=== PATIENT | female | born 1995 | race Caucasian/White ===

== ENCOUNTER 2020-03-11 19:25 | Outpatient (CLI) | payer OTHER, SELFPAY ==
[2020-03-11 20:00] VITALS: BP 136/76; PULSE 83
--- NOTE | 2020-03-11 20:00 | PC.NURSE ---
pt states pt has had intermittent episodes of blurry vision and seeing spots over the past couple weeks that typically resolve within 20 minutes. pt notices episodes upon walking out of pts work building and when pt watches tv. pt does use seeing glasses. pt states pt has not had dr visit since episodes began and dr is unaware.
[2020-03-11 20:02] VITALS: BP 125/76
[2020-03-11 20:15] VITALS: BP 120/67; PULSE 78; TEMP 36.7
[2020-03-11 20:18] LABS: Add Urine Microscopic? YES; Amorphous Sediment Urine Few; Appearance Urine Cloudy (Clear); Bilirubin Urine Negative (Negative); Blood Urine Negative (Negative); Color Urine Yellow (Yellow); Glucose Urine UA Negative (Negative); Ketones Urine Negative (Negative); Leukocyte Esterase Ur 1+ LEU/UL (NEGATIVE); Mucus Urine Rare /lpf; Nitrate Urine Negative (Negative); Protein Urine 1+ mg/dL (Negative); Specific Grav Ur 1.024 (1.001-1.035); Squamous Epithelial Cell Urine Many /hpf (Few); Urobilinogen Urine Negative mg/dL (<2.0); WBC Urine 0-3 /hpf (0-3)
[2020-03-11 20:21] LABS: Creatinine Urine 126.8 mg/dL; Total Protein Urine Random 12 mg/dL
== END 2020-03-11 19:26 | disposition home or self-care (01) ==
LOC: ANHOBOP 19:33
PROVIDERS: PCP Internal Medicine; Visit Provider Student in an Organized Health Care Education/Training Program
DX: O26.899 Other specified pregnancy related conditions, unspecified trimester (principal); R42 Dizziness and giddiness; Z3A.00 Weeks of gestation of pregnancy not specified
CPT/HCPCS: 59025; 81001; 82570; 84156; 87086; 87088

== ENCOUNTER 2020-03-20 22:55 | Inpatient (IN) | payer OTHER, SELFPAY ==
--- NOTE | 2020-03-06 14:04 | PC.NURSE ---
PATIENT STATES SHE HAS A HEART SHAPE UTERUS AND BABY IS BREECH--STATES IF BABY DOES NOT TURN SHE WILL HAVE A C/S INSTRUCTED PATIENT IF SHE IS A C/S SHE WILL NEED TO BE IN OB 2 HOURS BEFORE SURGERY TIME AND . NOTHING TO EATING OR DRINK AFTER MIDNIGHT THE NIGHT BEFORE SURGERY. PATIENT VERBALIZED HER UNDERSTANDING REQUISITION GIVEN TO PATIENT FOR PRE-OP LAB DRAW IF SHE IS SCHEDULED FOR C/S
[2020-03-20 23:23] VITALS: BP 133/77; PULSE 74
[2020-03-20 23:30] VITALS: BP 118/70; PULSE 77
[2020-03-20 23:45] VITALS: BP 110/69; PULSE 71
--- NOTE | 2020-03-20 23:49 | WPDANESEPP ---
Anes - Eval Pre Procedure Procedure: Labor epidural Date/Time: 03/20/20 23:49 Surgeon: Nabeel Preop Diagnosis: pain during labor Pre Op Diagnosis: IOL Patient Data Age: 24 Gender: F Height: Weight: Last Vital Signs Pulse 71 03/20/20 23:45 BP 110/69 03/20/20 23:45 Allergies Allergy/AdvReac Type Severity Reaction Status Date / Time No Known Allergies Allergy Verified 03/06/20 13:44 Home Medications Medication Instructions Recorded Confirmed Type PNV no.[id number] 1 tablet PO BID 03/06/20 03/11/20 History [ Gummies] Patient hx anesthesia problems: none Family hx anesthesia problems: none PMFSH Family History Family History (Updated 03/06/20 @ 13:48 by Chu Chaves RN) Grandparent Diabetes mellitus Chronic obstructive pulmonary disease Social History Social History Substance use: never Spiritual care concerns: No Exam Day of Procedure 03/20/20 23:49
[2020-03-21] VITALS (132 sets, daily range): BP systolic 99–132; BP diastolic 45–81; PULSE 56–148; RESP 18; TEMP 36.1–37.1; O2SAT 89–100; BMI 34.8
--- NOTE | 2020-03-21 00:33 | LDADM ---
This patient, Aundrea Love, was admitted to Labor/Delivery/Recovery 108 on 03/20/20 at 22:55. Plans for labor, pain management and were discussed with patient. Patient/family oriented to hospital policies and general routines including ID bracelet, bed and alarms, visiting hours, pain management, procedures, bathroom and other care routines, personal items, smoking policy, room service/diet and guest tray routines, security routines, and visiting hours. Patient/Family are encouraged to report perceived risks to care and to ask questions if they do not understand what they are told or what they should do. See OBIX for further documentation.
[2020-03-21] MEDS: miSOPROStol 25 MCG TABLET VAGINAL (01:01)
[2020-03-21] MEDS: LACTATED RINGERS 1,000 ML 125 ML IV CONT ×2 (01:15→08:02)
[2020-03-21] MEDS: AMPICILLIN 2 GM/NS 100 ML 2 GM/100 ML BAG IVPB (01:16)
[2020-03-21 01:38] LABS: Basophils Absolute Auto 0.1 K/mm3 (0.0-0.1); Basophils Percent Auto 0.5 % (0.2-1.2); Eosinophils Absolute Auto 0.1 K/mm3 (0-0.3); Eosinophils Percent Auto 0.6 % (0-4.4); Hematocrit 40.6 % (37.0-47.0); Immature Granulocyte Absolute 0.17 K/mm3 (0.00-0.031); Immature Granulocyte Percent A 1.5 % (0-0.5); Lymphocytes Absolute Auto 1.94 K/mm3 (0.9-3.2); Lymphocytes Percent Auto 17.7 % (18.3-44.2); Mean Corpuscular Hemoglobin 28.8 pg (26-34); Mean Corpuscular Volume 89.8 fl (80-100); Mean Platelet Volume 12.3 fl (7.4-10.4); Monocytes Absolute Auto 0.8 K/mm3 (0.1-0.6); Neutrophils Percent Auto 72.7 % (45.5-73.1); Platelet Count Result 216 k/mm3 (150-375); Red Blood Count 4.52 M/mm3 (4.2-5.4); Red Cell Distribution Width 14.5 % (11.5-14.5)
[2020-03-21] MEDS: AMPICILLIN 1 GM/NS 50 ML 1 GM/50 ML BAG IVPB ×2 (05:14→09:51)
[2020-03-21] MEDS: OXYTOCIN 30 UNITS/NS 500 ML 30 UNITS/500 ML BAG 6 UNITS IV CONT (05:44)
--- NOTE | 2020-03-21 07:19 | P.HPUP_ITS ---
History and Physical Update Update Date/Time: 03/21/20 07:19 24 yo G1 at 39w4d here for elective induction. Pt reports good FM. She denies vaginal bleeding or LOF. Her has been uncomplicated thus far. History and Physical has been reviewed, including an updated exam of the patie nt. There are NO changes in the patient's condition. Risks, benefits, and alternatives have been discussed and questions answered. Patient agrees to proceed with procedure. A/P: 24 yo G1 at 39w4d for elective IOL admit to L&D routine admission orders Rh+ GBS +, will start PCN in labor cvx closed on admission, plan for cytotec IOL FHT cat 1 continuous EFM
[2020-03-21 11:04] LABS: Rapid Plasma Reagin Non-Reactive (NonReactive)
--- NOTE | 2020-03-21 13:37 | P.PCNOB_ITS ---
OB - Delivery Note Procedure Procedure: Patient pushed for a spontaneous vaginal delivery. Nuchal cord was noted x2. The nuchal was reduced on the perineum. The fetus was delivered atraumatically and placed on the maternal abdomen. The cord was clamped and cut after 1 minute of life. The cord was double clamped and cut and a segment of cord was collected for cord gases. Cord blood was collected for blood type and Coomb's testing. The placenta delivered spontaneously and was noted to be intact. The perineum was inspected and there was a 2nd degree right sulcal laceration and bilateral labial lacerations. The lacerations were repaired with 3-0 vicryl in the usual fashion. The uterus was firm and good hemostasis was noted. The patient and fetus were stable in the delivery room. Intrapartal events: None Induction method: per misoprostol protocol Delivery augmentation: pitocin Delivery monitor: external FHT Route of delivery: Episiotomy description: None Laceration description: Vaginal - 2nd Degree Delivery repair: vicryl Specimen: No Estimated blood loss (mL): 400 Anesthesia type: Epidural Disposition: floor () Complications: No immediate complications [place] Baby Date of : 03/21/20 Time of : 13:10 Weeks of gestation at delivery: 39 Infant gender: Male Weight (pounds): 7 Weight (ounces): 4 presentation: vertex position: Left Occiput Anterior Placenta delivery description: Spontaneous cord vessel description: 3 Vessels, Nuchal Cord (2) and Around Body x1 score one minute: 8 score five minutes: 9
[2020-03-21] MEDS: OXYTOCIN 30 UNITS/NS 500 ML 30 UNITS/500 ML BAG 125 UNITS IV CONT (13:44)
[2020-03-21] MEDS: BENZOCAINE 20% AER SPR (*SP) 56 GM CAN 1 SPRAY TOPICAL (17:31)
[2020-03-21] MEDS: WITCH HAZEL 40 PADS 1 PAD TOPICAL (17:31)
[2020-03-21] MEDS: DOCUSATE SODIUM 100 MG CAPSULE PO (17:32)
[2020-03-21] MEDS: IBUPROFEN 600 MG TABLET PO (17:32)
--- NOTE | 2020-03-21 17:39 | PC.NURSE ---
Patient transferred to post room #281 per stretcher. Support person present. Oriented to unit, room, information board, rooming in, admission packet and security measures. Patient verbalizes understanding.
[2020-03-21] MEDS: ACETAMINOPHEN 325 MG TABLET 650 MG PO (23:03)
[2020-03-22 05:37] LABS: Hematocrit 29.9 % (37.0-47.0); Hemoglobin 9.5 g/dL (12.0-15.0)
--- NOTE | 2020-03-22 07:14 | P.PNOB_ITS ---
OB - PN: Subj Subjective Date/time seen: 03/22/20 07:14 Patient comments: no complaints, pain well controlled and tolerating diet [place] feeding status: exclusively breast feeding Narrative: patient doing well this AM. No complaints. Pain is well controlled. She reports minimal bleeding. She is ambulating and voiding without difficulty. She is tolerating PO. She denies N/V, fever, chills. Pt did have one episode of syncope yesterday after the delivery. OB - PN: Obj Data Labs CBC & Chem 7: 03/22/20 04:34 Labs: Laboratory Results - last 24 hr 03/21/20 03/22/20 00:52 04:34 Hgb 9.5 L D Hct 29.9 L RPR Non-reactive OB - PN A/P Plan day: 1 Plan: routine care Comments: patient doing well H/H 9.01/13, pt had an episode of syncope yesterday, will start iron supplementation plan for circumcision today, risks and benefits discussed continue routine care Time Spent With Patient Time: Total time spent is greater than 50% in coordination of care (as document ed) at patient's floor/unit and/or counseling patient: Time with patient: less than 15 minutes Review of Systems Review of Systems: All systems reviewed & are unremarkable except as noted in HPI and below Exam Const: General: comfortable and no acute distress Resp: Effort & Inspection: normal respiratory effort Cardio: Rate: regular rate GI: GI Palp: Yes Soft to palpation and No Tenderness to palpation present (GI) Auscultation: normal bowel sounds Other: fundus firm and below umbilicus. Psych: Affect: normal affect
--- NOTE | 2020-03-22 08:03 | WPDANLDPN2 ---
Anes-Prog Note L&D Date/Time: 03/22/20 08:03 Comfortable throughout: labor Neuraxial method: epidural Epidural/Spinal procedure site: clean & non-tender Neuro status: Neuro function grossly intact. Cardiovascular status: normal Respiratory status: normal Airway patency: baseline Mental status: baseline Post-Op hydration status: normal Vital Signs: Last Vital Signs Temp 98 F 03/21/20 20:00 Pulse 75 03/21/20 20:00 Resp 18 03/21/20 20:00 BP 113/70 03/21/20 20:00 Pulse Ox 98 03/21/20 20:00 I/O: Intake & Output 03/21/20 03/22/20 03/22/20 23:59 07:59 15:59 Intake Total 500 Balance 500 Post-procedural complaints: none Patient feedback: Patient satisfied with anesthetic care.
[2020-03-22 08:25] VITALS: BP 112/62; PULSE 86; RESP 16; TEMP 37; O2SAT 96
[2020-03-22] MEDS: IBUPROFEN 600 MG TABLET PO (08:41)
[2020-03-22] MEDS: DOCUSATE SODIUM 100 MG CAPSULE PO (08:41)
[2020-03-22] MEDS: POLYSACCHARIDE IRON COMPLEX 150 MG CAPSULE PO (08:41)
--- NOTE | 2020-03-22 14:54 | PM.OBDSVD ---
OB - DS: Summary OB Procedures : None OB Procedures Intrapartum: Spontaneous Vag Delivery OB Procedures: : None Status at Discharge Functional status at discharge: independent ambulation Overall status at discharge: patient is back to baseline Time Spent with Patient Time attestation: Total time spent providing and/or coordinating discharge services: Time spent: Less than 30 minutes Exam Const: General: comfortable and no acute distress Resp: Effort & Inspection: normal respiratory effort Auscultation: clear to auscultation bilaterally Cardio: Rate: regular rate GI: GI Palp: Yes Soft to palpation Auscultation: normal bowel sounds Other: Fundus firm below umbilicus Psych: Appearance: grossly normal Mental Status: mental status grossly normal Affect: normal affect DS: Data Data Completed and Pending Labs on day of discharge: Labs from last 24 hours 03/22/20 04:34 Hgb 9.5 L D Hct 29.9 L Discharge Plan Discharge Discharging Clinician: Benjamin Lees Patient Disposition: Home, Self-Care Activity: as tolerated and pelvic rest Diet: regular Discharge Instructions: call or return for temperature >100.4, bleeding >2 pads/hr for 2 hrs, pain not controlled with medications, signs/symptoms of mastitis Patient Instructions: Antibiotic Form, Vaginal Delivery (DC) Stand Alone Forms: General Discharge Information Follow-up/Referrals: Benjamin Lees MD [Physician] - Discharge Medications: New acetaminophen [Mapap (acetaminophen)] 325 mg Tablet 650 mg PO Q6H PRN (Reason: Mild Pain (1-3) Or Headache) Qty: 30 RF: 0 Dermoplast (with menthol) 20-0.5 % Aerosol 1 spray topical PRN PRN (Reason: Perineal Discomfort) Qty: 1 RF: 0 ibuprofen 600 mg Tablet 600 mg PO Q6H PRN (Reason: Cramping) Qty: 30 RF: 0 Nny-K-Amdgiv Cream 1 applic topical PRN PRN (Reason: Sore Nipples) Qty: 1 RF: 0 polysaccharide iron complex 150 mg iron Capsule 150 mg PO DAILY@0800 Qty: 30 RF: 0 Continued Gummies 400 mcg-35 mg- 25 mg-5 mg Tablet,Chewable 1 tablet PO BID RF: 0 Date of admission: 03/20/20 22:55 Primary Care Provider: Martine,Fer Valle Admitting Provider: Benjamin Lees Attending physician on admission: Benjamin Lees
[2020-03-24 09:54] VITALS: BP 120/69; PULSE 85; RESP 20; TEMP 36.7; O2SAT 100
== END 2020-03-22 16:27 | disposition home or self-care (01) | DRG 807 ==
LOC: ANHLDR 23:04 → ANHOB2 03-21 17:22
PROVIDERS: Admitting Provider Student in an Organized Health Care Education/Training Program; PCP Internal Medicine; Visit Provider Student in an Organized Health Care Education/Training Program
DX: O99.824 Streptococcus B carrier state complicating childbirth (principal); Z37.0 Single live birth; Z3A.39 39 weeks gestation of pregnancy; O70.1 Second degree perineal laceration during delivery; O69.2XX0 Labor and delivery complicated by other cord entanglement, with compression, not applicable or unspecified
CPT/HCPCS: 36415; 85014; 85018; 85025; 86592; 86850; 86900; 86901; A9270; J0290; J2590; J2795; J7120